=== PATIENT | female | born 1940 | race Caucasian/White ===

== ENCOUNTER → 2016-07-02 | Day surgery (SDC) | payer OTHER ==
[~2016-07-02] MED LIST: ALEN70TA39 PO; AMOX500T PO; BENT20TA PO; FIORIC PO; HYDR-3129 PO; LEFL20 PO; LEVO.05 PO; LOMO PO; LORA-392 PO; LOSA25TA31 PO; PRED-1 PO; PROPOFOL 100 MG/10 ML INJ IV ONE; SODIUM CHLORIDE 0.9% INJ 10 ML ONE; TRIAMCINOLONE ACETONIDE 40 MG/ML VIAL ONE
== END | disposition home or self-care (01) ==
LOC: ESDC 08:10
PROVIDERS: ATTEND Anesthesiology Pain Medicine
DX: M48.06 Spinal stenosis, lumbar region (principal)
CPT/HCPCS: 62323; J3301; 77003